=== PATIENT | male | born 1975 | race Caucasian/White ===

== ENCOUNTER 2018-05-08 16:45 | Emergency (ER) | payer OTHER ==
[2018-05-08 17:33] VITALS: BP 164/91
--- NOTE | 2018-05-08 17:53 | ER Document Report ---
HPI - HPI Patient complains to provider of: L eye pain/irritation Time Seen by Provider: 05/08/18 17:35 Pain Level: 4 Context: 42-year-old male with hypertension presents to the emergency department for left eye irritation. He states the problem initially started in of 2017 and he was seen at the [facility] in [place] and was prescribed erythromycin ointment and he stated his symptoms improved. He has had persistent irritation he describes in the 4 o'clock position. He complains of eye pain, photophobia, blurred vision, halos when driving at night to the point where he can only use one eye when driving. He denies fever, chills, nausea, vomiting, headache, dizziness, lightheadedness. He is complaining of some sinus Past Medical History - Social History Smoking Status: Never Smoker Family History: Reviewed & Not Pertinent Vertical Provider Document - INFECTION CONTROL TRAVEL OUTSIDE OF THE [place] IN LAST 30 DAYS: No - HEENT HEENT: Atraumatic, Conjuctival Injection Notes: Floor seen stain testing performed on the left eye. There is some diffuse uptake in the left lower quadrant of the sclera with no iris involvement. Patient showed me a picture that is consistent with his previous complaint. Extraocular movements intact. Course - Re-evaluation Re-evalutation: 05/08/18 18:06 42 male with hypertension presents with persistent left eye irritation previously treated around with improvements. There is no evidence of corneal ulceration on floor seen stain testing with Wood lamp. No evidence of entrapment, no evidence of orbital or periorbital abscess. It is a similar pattern of floor seen uptake. I will prescribe him Polytrim with close follow-up with ophthalmology. - Vital Signs Vital signs: Temp Pulse Resp BP Pulse Ox 98.3 F 76 14 164/91 H 99 05/08/18 17:32 05/08/18 17:32 05/08/18 17:32 05/08/18 17:32 05/08/18 17:32 Discharge - Discharge Clinical Impression: Corneal abnormality Condition: Good Disposition: HOME, SELF-CARE Instructions: Antibiotic Therapy ([facility]), Conjunctivitis ([facility]), Eyedrop Use ([facility]) Additional Instructions: Please follow up with ophthamology for definitive treatment. If you have worsening vision, have the appearance of a "blanket" over your eye, or lose vision immediately return to the emergency dept.
[2018-05-08] MEDS ORDERED: POLYMYXIN B SULFATE/TMP OPH SOLN (10 ML/ER DISP) OS ONE (17:55)
== END 2018-05-08 19:03 | disposition home or self-care (01) ==
LOC: ER 16:45
DX: Q13.4 Other congenital corneal malformations (principal); H57.12 Ocular pain, left eye
CPT/HCPCS: 99284; J3490